=== PATIENT | female | born 1960 | race Caucasian/White ===

== ENCOUNTER 2018-03-31 08:28 | Emergency (ER) | payer OTHER ==
[2018-03-31 08:44] VITALS: BP 111/54
--- NOTE | 2018-03-31 09:16 | UC ---
Respiratory Complaint HPI - HPI Summary HPI Summary: 4 DAYS OF COUGH, SINUS PRESSURE, NASAL CONGESTION, LEFT EAR PAIN, ST AND CHEST CONGESTION. HAS H/O ASTHMA. FEELS WHEEZY. ALBUTEROL NOT HELPING MUCH. - History of Current Complaint Chief Complaint: UCRespiratory Stated Complaint: SINUS ISSUE Time Seen by Provider: 03/31/18 08:51 Hx Obtained From: Patient Onset/Duration: Gradual Onset, Lasting Days, Still Present Timing: Constant Severity Initially: Mild Severity Currently: Mild Pain Intensity: 2 Pain Scale Used: 0-10 Numeric Character: Cough: Nonproductive Aggravating Factors: Nothing Alleviating Factors: Nothing Associated Signs And Symptoms: Positive: Wheezing, URI, Nasal Congestion, Sinus Discomfort. Negative: Fever, Pleuritic Chest Pain - Allergies/Home Medications Allergies/Adverse Reactions: Allergies Allergy/AdvReac Type Severity Reaction Status Date / Time diazepam [From Valium] Allergy Vomiting Verified 03/31/18 08:47 Penicillins Allergy Rash Verified 03/31/18 08:44 Home Medications: Home Medications Albuterol HFA INHALER* [Ventolin HFA Inhaler*] 1 puff INH Q4H PRN 03/31/18 [ History Confirmed 03/31/18] Alpha Lipoic Acid 600 mg PO 03/31/18 [History] Ascorbic Acid TAB* [Vitamin C TAB*] 1,000 mg PO DAILY 03/31/18 [History Confirmed 03/31/18] Calcium Citrate TAB* [Citracal TAB*] 200 mg PO BID 03/31/18 [History Confirmed 03/31/18] Loratadine/Pseudoephedrine [Claritin-D 24 Hour Tablet] 1 tab PO 03/31/18 [ History] Multivitamin with Iron [Daily Multivitamin with Iron] 1 each PO 03/31/18 [ History] PMH/Surg Hx/FS Hx/Imm Hx Respiratory History: Asthma - Surgical History Surgical History: None - Family History Known Family History: Negative: Hypertension - Social History Alcohol Use: None Substance Use Type: None Smoking Status (MU): Never Smoked Tobacco Review of Systems Constitutional: Negative ENT: Sore Throat, Ear Ache, Nasal Discharge Respiratory: Cough Cardiovascular: Negative Gastrointestinal: Negative All Other Systems Reviewed And Are Negative: Yes Physical Exam Triage Information Reviewed: Yes Appearance: Well-Appearing, No Pain Distress, Well-Nourished Vital Signs: Initial Vital Signs Temp 98.2 F 03/31/18 08:40 Pulse 74 03/31/18 08:40 Resp 18 03/31/18 08:40 BP 111/54 03/31/18 08:40 Pulse Ox 100 03/31/18 08:40 Vital Signs Reviewed: Yes Eyes: Positive: Conjunctiva Clear ENT: Positive: Hearing grossly normal, Pharynx normal, TMs normal, Other - LEFT EAC WITH CERUMEN PARTIALLY OBSTRUCTING TM Neck: Positive: Supple, Nontender, No Lymphadenopathy Respiratory: Positive: No respiratory distress, No accessory muscle use, Wheezing - MILD END EXP WHEEZING DIFFUSELY. Negative: Decreased breath sounds Cardiovascular Exam: Normal Abdomen Description: Positive: Soft Musculoskeletal: Positive: No Edema Neurological: Positive: Alert Psychological: Positive: Age Appropriate Behavior Skin: Negative: rashes UC Diagnostic Evaluation - Laboratory O2 Sat by Pulse Oximetry: 100 Respiratory Course/Dx - Course Course Of Treatment: LEFT EAC SUCCESSFULLY IRRIGATED BY RN. TM NORMAL - Differential Dx/Diagnosis Provider Diagnoses: 1. ACUTE BRONCHITIS. 2. LEFT EAR CERUMEN IMPACTION Discharge - Sign-Out/Discharge Documenting (check all that apply): Patient Departure All imaging exams completed and their final reports reviewed: No Studies - Discharge Plan Condition: Stable Disposition: HOME Prescriptions: Azithromycin 500 mg PO DAILY #5 tab predniSONE TAB* [Deltasone 20 MG TAB*] 40 mg PO DAILY #10 tab Patient Education Materials: Cerumen Impaction (ED), Acute Bronchitis (ED) Referrals: No Primary Care Phys,NOPCP [Primary Care Provider] - Additional Instructions: YOUR SYMPTOMS MAY BE VIRALLY MEDIATED BUT GIVEN YOUR WHEEZE AND UNDERLYING ASTHMA WE WILL COVER YOU WITH ANTIBIOTICS. IF YOU START THE MEDICINE BE SURE TO TAKE IT FOR THE FULL COURSE. REST, HYDRATE, OTC MEDS NEEDED. WILL ALSO TREAT WITH PREDNISONE TO HELP WITH AIRWAY INFLAMMATION. CONTINUE YOUR INHALER NEEDED. SEEK FOLLOW-UP IF YOU ARE NOT IMPROVING OVER THE NEXT 1-2 WEEKS. CALL THE NUMBER BELOW FOR ASSISTANCE IN ESTABLISHING WITH A PCP An additional resource available to assist in finding the appropriate physician for your health care needs is the [facility] ([facility]). You may contact them by calling [phone]. - Billing Disposition and Condition Condition: STABLE Disposition: Home
== END 2018-03-31 09:31 | disposition home or self-care (01) ==
LOC: UCEAST 08:28
DX: J20.9 Acute bronchitis, unspecified (principal); H61.22 Impacted cerumen, left ear; Z88.3 Allergy status to other anti-infective agents; Z88.0 Allergy status to penicillin
CPT/HCPCS: 99213; G0463

== ENCOUNTER 2018-09-13 09:09 | Emergency (ER) | payer OTHER ==
[2018-09-13 09:17] VITALS: BP 108/47
--- NOTE | 2018-09-13 10:21 | UC ---
Throat Pain/Nasal Roberto HPI - HPI Summary HPI Summary: 58-year-old woman comes in with a chief complaint of runny nose sore throat cough chest congestion for 4 days. He does have some body aches she took some ibuprofen which helped the body aches. No shortness of breath. She does have some left ear pain. Not a smoker. - History of Current Complaint Chief Complaint: UCGeneralIllness Stated Complaint: SORE THROAT Time Seen by Provider: 09/13/18 10:14 Pain Intensity: 1 - Allergies/Home Medications Allergies/Adverse Reactions: Allergies Allergy/AdvReac Type Severity Reaction Status Date / Time diazepam [From Valium] Allergy Vomiting Verified 09/13/18 09:18 Penicillins Allergy Rash Verified 09/13/18 09:18 PMH/Surg Hx/FS Hx/Imm Hx Previously Healthy: Yes - Surgical History Surgical History: None - Family History Known Family History: Negative: Hypertension - Social History Alcohol Use: None Substance Use Type: None Smoking Status (MU): Never Smoked Tobacco Review of Systems All Other Systems Reviewed And Are Negative: Yes Constitutional: Positive: Negative Skin: Positive: Negative Eyes: Positive: Negative ENT: Positive: Sore Throat, Ear Ache, Nasal Discharge, Sinus Congestion Respiratory: Positive: Cough, Other - SEE HPI Cardiovascular: Positive: Negative Gastrointestinal: Positive: Negative Motor: Positive: Negative Neurovascular: Positive: Negative Musculoskeletal: Positive: Negative Neurological: Positive: Negative Psychological: Positive: Negative Is Patient Immunocompromised?: No Physical Exam Triage Information Reviewed: Yes Appearance: No Pain Distress, Well-Nourished, Ill-Appearing - MILD Vital Signs: Initial Vital Signs Temp 98.4 F 09/13/18 09:14 Pulse 93 09/13/18 09:14 Resp 18 09/13/18 09:14 BP 108/47 09/13/18 09:14 Pulse Ox 100 09/13/18 09:14 Vital Signs Reviewed: Yes Eye Exam: Normal Eyes: Positive: Conjunctiva Clear ENT: Positive: Pharyngeal erythema, Nasal congestion, Nasal drainage, TMs normal Neck exam: Normal Neck: Positive: Supple Respiratory: Positive: Lungs clear, Normal breath sounds, No respiratory distress Cardiovascular: Positive: RRR Musculoskeletal Exam: Normal Musculoskeletal: Positive: Strength Intact, ROM Intact Neurological Exam: Normal Neurological: Positive: Alert, Muscle Tone Normal Psychological Exam: Normal Psychological: Positive: Age Appropriate Behavior Skin Exam: Normal Throat Pain/Nasal Course/Dx - Course Course Of Treatment: DISCUSSED VIRAL VERSES BACTERIAL INFECTION AND THE ROLE OF ANTIBIOTICS. THE PATIENT WISHES TO BE ON ANTIBIOTIC AT THIS TIME. - Differential Dx/Diagnosis Provider Diagnosis: Upper respiratory infection Discharge - Sign-Out/Discharge Documenting (check all that apply): Patient Departure All imaging exams completed and their final reports reviewed: No Studies - Discharge Plan Condition: Stable Disposition: HOME Prescriptions: Azithromyxin NO (NF) [Z-No (Zithromax) 250 mg tabs #6] 2 tab PO .TODAY, THEN 1 DAILY #6 tab Patient Education Materials: Upper Respiratory Infection (ED) Referrals: [facility] [place] [facility]FERR[facility] [Outside] Additional Instructions: FOLLOW UP WITH YOUR DOCTOR IF NOT COMPLETELY IMPROVED. GET RECHECKED SOONER WITH ANY WORSENING OF YOUR CONDITION OR QUESTIONS OR CONCERNS. - Billing Disposition and Condition Condition: STABLE Disposition: Home
== END 2018-09-13 10:26 | disposition home or self-care (01) ==
LOC: UCEAST 09:09
DX: J06.9 Acute upper respiratory infection, unspecified (principal)
CPT/HCPCS: 99212; G0463

== ENCOUNTER 2018-10-23 09:44 | Emergency (ER) | payer OTHER ==
[2018-10-23 10:04] VITALS: BP 108/53
--- NOTE | 2018-10-23 10:47 | UC ---
Abdominal Pain Female HPI - HPI Summary HPI Summary: Pt c/o sudden onset of LLQ pain that began at 0120 this morning. Pt describes the pain as intermittent sharp, dull, and occasionally burning pain. Pt states that the pain has "spread to RLQ as well. pt is sitting comfortably in chair doing a cross word puzzle. Pt reports that she had a colonoscopy with "extra air " last week by [facility]. a d all reports were normal. Pt reports that she has had BM yesterday an dis passing flatus today. - History of Current Complaint Chief Complaint: UCAbdominalPain Stated Complaint: ABD PAIN Time Seen by Provider: 10/23/18 10:37 Hx Obtained From: Patient ?: No Onset/Duration: Sudden Onset, Lasting Hours, Still Present Timing: Intermittent Episodes Lasting: Severity Initially: Mild Severity Currently: Mild Pain Intensity: 5 Location: Discrete At: RLQ, Discrete At: LLQ Radiates: No Character: Burning, Cramping, Dull, Sharp Aggravating Factor(s): Nothing Alleviating Factor(s): Nothing Associated Signs and Symptoms: Positive: Negative, Other: - had colonoscopy last week. - Risk Factors Ectopic Risk Factor: Negative Ovarian Torsion Risk Factor: Negative Allergies/Adverse Reactions: Allergies Allergy/AdvReac Type Severity Reaction Status Date / Time amoxicillin [From Augmentin] Allergy Rash Verified 10/23/18 10:05 clavulanic acid Allergy Rash Verified 10/23/18 10:05 [From Augmentin] coconut Allergy Anaphylatic Verified 10/23/18 10:05 Shock codeine Allergy Vomiting Verified 10/23/18 10:05 diazepam [From Valium] Allergy Vomiting Verified 10/23/18 10:05 doxycycline Allergy Difficulty Verified 10/23/18 10:05 Swallowing, lung pain, saw white spots mushroom Allergy Rash, Verified 10/23/18 10:05 wheezing Penicillins Allergy Rash Verified 10/23/18 10:05 soy Allergy Itching Verified 10/23/18 10:05 strawberry Allergy Rash, Verified 10/23/18 10:05 wheezing Tree Nuts Allergy Anaphylatic Verified 10/23/18 10:05 Shock Yeast Allergy Congestion Verified 10/23/18 10:05 avocadoes Allergy Unknown Uncoded 10/23/18 10:05 Reaction Details cats Allergy Unknown Uncoded 10/23/18 10:05 Reaction Details MSG Allergy GI Upset Uncoded 10/23/18 10:05 PMH/Surg Hx/FS Hx/Imm Hx Previously Healthy: Yes - Surgical History Surgical History: None - Family History Known Family History: Negative: Hypertension - Social History Occupation: Employed Full-time Lives: With Family Alcohol Use: None Substance Use Type: None Smoking Status (MU): Never Smoked Tobacco Have You Smoked in the Last Year: No Review of Systems All Other Systems Reviewed And Are Negative: Yes Constitutional: Positive: Negative Skin: Positive: Negative Eyes: Positive: Negative ENT: Positive: Negative Respiratory: Positive: Negative Cardiovascular: Positive: Negative Gastrointestinal: Positive: Abdominal Pain Genitourinary: Positive: Negative Motor: Positive: Negative Neurovascular: Positive: Negative Musculoskeletal: Positive: Negative Neurological: Positive: Negative Psychological: Positive: Negative Is Patient Immunocompromised?: No Physical Exam Triage Information Reviewed: Yes Appearance: Well-Appearing Vital Signs: Initial Vital Signs Temp 98.9 F 10/23/18 10:01 Pulse 88 10/23/18 10:01 Resp 18 10/23/18 10:01 BP 108/53 10/23/18 10:01 Pulse Ox 100 10/23/18 10:01 Vital Signs Reviewed: Yes Eye Exam: Normal ENT Exam: Normal Dental Exam: Normal Neck exam: Normal Respiratory Exam: Normal Cardiovascular Exam: Normal Abdomen Description: Positive: Other: - generalized tenderness Bowel Sounds: Positive: Present Musculoskeletal Exam: Normal Neurological Exam: Normal Psychological Exam: Normal Skin Exam: Normal Abd Pain Female Course/Dx - Course Course Of Treatment: Pt was instructed to call GI provider as soon as possible. Pt verbalized understanding and agreed to plan of car.e Pt denies black tarry stools or BRBPR - Differential Dx/Diagnosis Differential Diagnosis: Bowel Obstruction, Other - complication of colonoscopy Provider Diagnosis: Abdominal pain, acute, generalized Discharge - Sign-Out/Discharge Documenting (check all that apply): Patient Departure All imaging exams completed and their final reports reviewed: No Studies - Discharge Plan Condition: Stable Disposition: HOME Patient Education Materials: Abdominal Pain (ED) Referrals: Benny Casper MD [Medical Doctor] - As Soon As Possible Dru Jasmine MD [Primary Care Provider] - Additional Instructions: Please follow up with your GI provider immediately. If symptoms worsen please seek care immediately at the closest emergency room. - Billing Disposition and Condition Condition: STABLE Disposition: Home
== END 2018-10-23 10:55 | disposition home or self-care (01) ==
LOC: UCEAST 09:44
DX: R10.84 Generalized abdominal pain (principal); Z88.5 Allergy status to narcotic agent; Z88.0 Allergy status to penicillin; Z91.09 Other allergy status, other than to drugs and biological substances; Z91.018 Allergy to other foods; Z88.1 Allergy status to other antibiotic agents
CPT/HCPCS: 99212; G0463

== ENCOUNTER 2018-10-30 07:47 | Emergency (ER) | payer OTHER ==
[2018-10-30 08:00] VITALS: BP 116/68
--- NOTE | 2018-10-30 08:15 | UC ---
Laceration HPI - HPI Summary HPI Summary: laceration left side of vaginal area x 1 day was noted last night , minimal bleeding, no known injury - History Of Current Complaint Chief Complaint: UCGU Stated Complaint: PERSONAL Time Seen by Provider: 10/30/18 07:57 Hx Obtained From: Patient Laceration Location: Generalized - left side of vaginal area Mechanism Of Injury: No Known Trauma Onset/Duration: Gradual Onset, Lasting Days - 1, Still Present Severity: Moderate Pain Intensity: 3 Aggravating Factors: Other: - touch - Allergies/Home Medications Allergies/Adverse Reactions: Allergies Allergy/AdvReac Type Severity Reaction Status Date / Time amoxicillin [From Augmentin] Allergy Rash Verified 10/30/18 08:00 clavulanic acid Allergy Rash Verified 10/30/18 08:00 [From Augmentin] coconut Allergy Anaphylatic Verified 10/30/18 08:00 Shock codeine Allergy Vomiting Verified 10/30/18 08:00 diazepam [From Valium] Allergy Vomiting Verified 10/30/18 08:00 doxycycline Allergy Difficulty Verified 10/30/18 08:00 Swallowing, lung pain, saw white spots horse dander Allergy Rash Verified 10/30/18 08:00 mushroom Allergy Rash, Verified 10/30/18 08:00 wheezing Penicillins Allergy Rash Verified 10/30/18 08:00 soy Allergy Itching Verified 10/30/18 08:00 strawberry Allergy Rash, Verified 10/30/18 08:00 wheezing Tree Nuts Allergy Anaphylatic Verified 10/30/18 08:00 Shock Yeast Allergy Congestion Verified 10/30/18 08:00 avocadoes Allergy Unknown Uncoded 10/30/18 08:00 Reaction Details cats Allergy Unknown Uncoded 10/30/18 08:00 Reaction Details MSG Allergy GI Upset Uncoded 10/30/18 08:00 Home Medications: Home Medications Ibuprofen 600 mg PO ONCE PRN 10/30/18 [History Confirmed 10/30/18] PMH/Surg Hx/FS Hx/Imm Hx Previously Healthy: Yes - Surgical History Surgical History: Yes Surgery Procedure, Year, and Place: colonoscopy - Family History Known Family History: Negative: Hypertension - Social History Alcohol Use: None Substance Use Type: None Smoking Status (MU): Never Smoked Tobacco Have You Smoked in the Last Year: No Review of Systems All Other Systems Reviewed And Are Negative: Yes Constitutional: Positive: Negative Eyes: Positive: Negative ENT: Positive: Negative Respiratory: Positive: Negative Is Patient Immunocompromised?: No Physical Exam Triage Information Reviewed: Yes Appearance: Well-Appearing, No Pain Distress, Well-Nourished Vital Signs: Initial Vital Signs Temp 97.6 F 10/30/18 07:54 Pulse 77 10/30/18 07:54 Resp 18 10/30/18 07:54 BP 116/68 10/30/18 07:54 Pulse Ox 100 10/30/18 07:54 Vital Signs Reviewed: Yes Eye Exam: Normal Eyes: Positive: Conjunctiva Clear ENT: Positive: Normal ENT inspection, Hearing grossly normal, Pharynx normal Neck: Positive: Supple, Nontender, No Lymphadenopathy Respiratory: Positive: Chest non-tender, Lungs clear, Normal breath sounds Cardiovascular: Positive: RRR, No Murmur, Pulses Normal Pelvic Exam: Positive: No Masses, Other. Negative: Active Bleeding, Discharge - minor superfacial lacearation left side of vaginano no bleeding Laceration Course/Dx - Diagnosis Provider Diagnosis: Laceration of vagina Discharge - Sign-Out/Discharge Documenting (check all that apply): Patient Departure All imaging exams completed and their final reports reviewed: No Studies - Discharge Plan Condition: Stable Disposition: HOME Patient Education Materials: Laceration Without Closure (ED) Referrals: Dru Jasmine MD [Primary Care Provider] - If Needed Additional Instructions: minor laceration left side of vaginal area no need for repair, minimal bleeding keep the area clean , may use otc antibiotic ointment daily follow up as needed - Billing Disposition and Condition Condition: STABLE Disposition: Home
== END 2018-10-30 08:15 | disposition home or self-care (01) ==
LOC: UCEAST 07:47
DX: S31.41XA Laceration without foreign body of vagina and vulva, initial encounter (principal); Z91.09 Other allergy status, other than to drugs and biological substances; Z88.1 Allergy status to other antibiotic agents; Z88.0 Allergy status to penicillin; Z91.018 Allergy to other foods; Z88.5 Allergy status to narcotic agent; X58.XXXA Exposure to other specified factors, initial encounter; Y92.9 Unspecified place or not applicable
CPT/HCPCS: 99211; G0463

== ENCOUNTER 2018-12-27 03:15 | Emergency (ER) | payer OTHER ==
[2018-12-27] MEDS ORDERED: Lidocaine 2% VISCOUS* 15 ML UDC PO ONE (03:52)
[2018-12-27] MEDS ORDERED: Al Hydrox/Mg Hydrox/Simet LIQ* 30 ML UDC PO ONE (03:52)
--- NOTE | 2018-12-27 03:56 | ED ---
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 She woke up this morning with diaphoresis described as night sweats and clammy skin. She denies any chest pain and SOB. 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 - History Of Current Complaint Chief Complaint: EDGeneral Hx Obtained From: Patient Onset/Duration: Sudden Onset Associated Signs And Symptoms: Positive: Diaphoresis. Negative: Chest Pain - Allergies/Home Medications Allergies/Adverse Reactions: Allergies Allergy/AdvReac Type Severity Reaction Status Date / Time amoxicillin [From Augmentin] Allergy Rash Verified 12/27/18 03:21 clavulanic acid Allergy Rash Verified 12/27/18 03:21 [From Augmentin] coconut Allergy Anaphylatic Verified 12/27/18 03:21 Shock codeine Allergy Vomiting Verified 12/27/18 03:21 diazepam [From Valium] Allergy Vomiting Verified 12/27/18 03:21 doxycycline Allergy Difficulty Verified 12/27/18 03:21 Swallowing, lung pain, saw white spots horse dander Allergy Rash Verified 12/27/18 03:21 mushroom Allergy Rash, Verified 12/27/18 03:21 wheezing Penicillins Allergy Rash Verified 12/27/18 03:21 soy Allergy Itching Verified 12/27/18 03:21 strawberry Allergy Rash, Verified 12/27/18 03:21 wheezing Tree Nuts Allergy Anaphylatic Verified 12/27/18 03:21 Shock Yeast Allergy Congestion Verified 12/27/18 03:21 avocadoes Allergy Unknown Uncoded 12/27/18 03:21 Reaction Details cats Allergy Unknown Uncoded 12/27/18 03:21 Reaction Details MSG Allergy GI Upset Uncoded 12/27/18 03:21 PMH/Surg Hx/FS Hx/Imm Hx Respiratory History: Reports: Hx Asthma Musculoskeletal History: Denies: Hx Osteoporosis EENT History: Denies: Hx Deafness - Surgical History Surgery Procedure, Year, and Place: colonoscopy Infectious Disease History: No Infectious Disease History: Denies: Traveled Outside the [place] in Last 30 Days - Family History Known Family History: Negative: Hypertension - Social History Alcohol Use: None Substance Use Type: Reports: None Smoking Status (MU): Never Smoked Tobacco Have You Smoked in the Last Year: No Review of Systems Positive: Skin Diaphoresis Positive: Other - Acid reflux All Other Systems Reviewed And Are Negative: Yes Physical Exam - Summary Physical Exam Summary: VITAL SIGNS: Reviewed. GENERAL: Patient is a well-developed and nourished FEMALE who is lying comfortable in the stretcher. Patient is not in any acute respiratory distress. HEAD AND FACE: No signs of trauma. No ecchymosis, hematomas or skull depressions. No sinus tenderness. EYES: PERRLA, EOMI x 2, No injected conjunctiva, no nystagmus. EARS: Hearing grossly intact. Ear canals and tympanic membranes are within normal limits. MOUTH: Oropharynx within normal limits. NECK: Supple, trachea is midline, no adenopathy, no JVD, no carotid bruit, no c- spine tenderness, neck with full ROM. CHEST: Symmetric, no tenderness at palpation LUNGS: Clear to auscultation bilaterally. No wheezing or crackles. CVS: Regular rate and rhythm, S1 and S2 present, no murmurs or gallops appreciated. ABDOMEN: Soft, epigastric tenderness. No signs of distention. No rebound no guarding, and no masses palpated. Bowel sounds are normal. EXTREMITIES: FROM in all major joints, no edema, no cyanosis or clubbing. NEURO: Alert and oriented x 3. No acute neurological deficits. Speech is normal and follows commands. SKIN: Dry and warm Triage Information Reviewed: Yes Vital Signs On Initial Exam: Initial Vitals Temp Pulse Resp BP Pulse Ox 98.6 F 77 20 138/72 100 12/27/18 03:17 12/27/18 03:17 12/27/18 03:17 12/27/18 03:17 12/27/18 03:17 Vital Signs Reviewed: Yes Diagnostics - Vital Signs Vital Signs Temp Pulse Resp BP Pulse Ox 12/27/18 03:17 98.6 F 77 20 138/72 100 - Laboratory Result Diagrams: 12/27/18 04:09 12/27/18 04:09 Lab Statement: Any lab studies that have been ordered have been reviewed, and results considered in the medical decision making process. - EKG 0408 Cardiac Rate: NL EKG Rhythm: Sinus Rhythm - [address] Segment: Normal Ectopy: None Summary of EKG Findings: Normal axis, normal interval, no ischemic changes. 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 Labs are unremarkable. EKG is unremarkable for cardiovascular problems. Labs are unremarkable. Patient HEART score is 1. Patient had 2 negative troponin tests. Patient will be discharged and instructed to follow up with a Solid Waste Division Supervisor for a stress test. This plan was discussed with the patient and she is agreeable with this plan. - Diagnoses Provider Diagnoses: Atypical chest pain, GERD (gastroesophageal reflux disease) Discharge - Sign-Out/Discharge Documenting (check all that apply): Patient Departure - Discharge Patient Received Moderate/Deep Sedation with Procedure: No - Discharge Plan Condition: Stable Disposition: HOME Patient Education Materials: Chest Pain (ED), Gastroesophageal Reflux Disease ( ED) Referrals: [facility] [Provider Group] - 2 Days Additional Instructions: Follow up with Cardiology in 2 days for stress test. Return to ED with any new or worsening symptoms. - Attestation Statements Document Initiated by Scribe: Yes Documenting Scribe: Reggie Ham Provider For Whom Scribe is Documenting (Include Credential): Negra Cloud MD Scribe Attestation: Reggie Dela Cruz scribed for Negra Cloud MD on 12/27/18 at 0636. Status of Scribe Document: Ready
[2018-12-27 04:18] LABS: ABS Eosinophils 0.2 10^3/ul (0-0.6); ABS Lymphocytes 1.3 10^3/ul (1.0-4.8); ABS Monocytes 0.5 10^3/ul (0-0.8); ABS Neutrophils 2.6 10^3/ul (1.5-7.7); Eosinophil % 4.3 %; Hematocrit 40 % (35-47); Hemoglobin 13.2 g/dL (12.0-16.0); Lymphocyte % 27.6 %; Mean Corpuscular HGB Conc 33 g/dL (31-36); Mean Corpuscular Hemoglobin 28 pg (27-31); Mean Corpuscular Volume 85 fL (80-97); Mean Platelet Volume 9.1 fL (7.4-10.4); Nucleated Red Blood Cells % 0.1; Platelet Count 237 10^3/uL (150-450); Red Blood Count 4.67 10^6 /uL (3.70-4.87); Red Cell Distribution Width 14 % (10.5-15); White Blood Count 4.6 10^3/uL (3.5-10.8)
[2018-12-27 04:25] LABS: Activated Partial Thrombo Time 34.1 seconds (26.0-36.3); INR 1.07 (0.82-1.09)
[2018-12-27 04:34] LABS: Albumin 3.9 g/dL (3.2-5.2); Albumin/Globulin Ratio 1.4 (1-3); BUN/Creatinine Ratio 25.5 (8-20); Calcium 9.5 mg/dL (8.6-10.3); EGFR African American 148.8 (>60); Globulin 2.7 g/dL (2-4); Magnesium 2.2 mg/dL (1.9-2.7); Potassium 4.2 mmol/L (3.5-5.0); Total Bilirubin 0.3 mg/dL (0.2-1.0); Total Protein 6.6 g/dL (6.4-8.9)
[2018-12-27 04:36] LABS: Troponin I 0.01 ng/mL (<0.04)
[2018-12-27 07:08] VITALS: BP 124/65
== END 2018-12-27 07:08 | disposition home or self-care (01) ==
LOC: ED 03:15
DX: R07.89 Other chest pain (principal); K21.9 Gastro-esophageal reflux disease without esophagitis; Z88.5 Allergy status to narcotic agent; Z88.0 Allergy status to penicillin
CPT/HCPCS: 36415; 80053; 82150; 83605; 83690; 83735; 84484; 85025; 85610; 85730; 93005; 99283; A9270-GY

== ENCOUNTER 2019-10-29 16:04 | Emergency (ER) | payer OTHER ==
--- NOTE | 2019-10-29 17:10 | UC ---
FLU HPI - HPI Summary HPI Summary: 59-year-old woman comes in with chief complaint of 3 days of influenza-like symptoms. She's had a runny nose with some cough and chest congestion has also had some body aches. Has felt some wheezing which albuterol did help. No recent travel or known contact with anybody with Covid 19. Describes a chest tightness. Denies any concern of her heart during the interview. - History of Current Complaint Chief Complaint: UCRespiratory Stated Complaint: COUGH, HEAVY CHEST Time Seen by Provider: 10/29/19 16:45 Pain Intensity: 0 - Allergy/Home Medications Allergies/Adverse Reactions: Allergies Allergy/AdvReac Type Severity Reaction Status Date / Time amoxicillin [From Augmentin] Allergy Rash Verified 12/27/18 03:21 clavulanic acid Allergy Rash Verified 12/27/18 03:21 [From Augmentin] coconut Allergy Anaphylatic Verified 12/27/18 03:21 Shock codeine Allergy Vomiting Verified 12/27/18 03:21 diazepam [From Valium] Allergy Vomiting Verified 12/27/18 03:21 doxycycline Allergy Difficulty Verified 12/27/18 03:21 Swallowing, lung pain, saw white spots horse dander Allergy Rash Verified 12/27/18 03:21 mushroom Allergy Rash, Verified 12/27/18 03:21 wheezing Penicillins Allergy Rash Verified 12/27/18 03:21 soy Allergy Itching Verified 12/27/18 03:21 strawberry Allergy Rash, Verified 12/27/18 03:21 wheezing Tree Nuts Allergy Anaphylatic Verified 12/27/18 03:21 Shock Yeast Allergy Congestion Verified 12/27/18 03:21 avocadoes Allergy Unknown Uncoded 12/27/18 03:21 Reaction Details cats Allergy Unknown Uncoded 12/27/18 03:21 Reaction Details MSG Allergy GI Upset Uncoded 12/27/18 03:21 Home Medications: Home Medications Albuterol HFA INHALER* [Ventolin HFA Inhaler*] 1 puff INH Q4H PRN 03/31/18 [ History Confirmed 12/27/18] Alpha Lipoic Acid 400 mg PO DAILY 03/31/18 [History Confirmed 12/27/18] Ascorbic Acid TAB* [Vitamin C TAB*] 1,000 mg PO DAILY 03/31/18 [History Confirmed 12/27/18] Calcium Citrate TAB* [Citracal TAB*] 900 mg PO DAILY 03/31/18 [History Confirmed 12/27/18] Loratadine/Pseudoephedrine [Claritin-D 24 Hour Tablet] 1 tab PO DAILY 03/31/18 [ History Confirmed 12/27/18] Magnesium Oxide TAB* [MagOx 400 TAB*] 400 mg PO DAILY 10/02/18 [History Confirmed 12/27/18] Silica Gel 7 drop PO DAILY 10/02/18 [History Confirmed 12/27/18] Cholecalciferol TAB* [Vitamin D TAB*] 2,000 units PO DAILY 10/12/18 [History Confirmed 12/27/18] Multivitamin [Multiple Vitamins] 1 tab PO DAILY 10/14/18 [History Confirmed ] Ibuprofen 600 mg PO ONCE PRN 10/30/18 [History Confirmed 12/27/18] Pantoprazole TAB * [Protonix TAB*] 40 mg PO DAILY #30 tab 12/27/18 [Rx] Alendronate Sodium 70 mg PO WEEKLY 10/29/19 [History Confirmed 10/29/19] Azithromyxin NO (NF) [Z-No (Zithromax) 250 mg tabs #6] 2 tab PO .TODAY, THEN 1 DAILY #6 tab 10/29/19 [Rx] Mupirocin 1 applic TOPICAL BID #22 gm 10/29/19 [Rx] Ofloxacin 0.3% (Ear Drop)* [Floxin 0.3% OTIC.BUFFY (Ear Drop)] 5 drop LEFT EAR BID #1 btl 10/29/19 [Rx] PMH/Surg Hx/FS Hx/Imm Hx Previously Healthy: Yes Respiratory History: Asthma GI/ History: Gastroesophageal Reflux - Surgical History Surgical History: None Surgery Procedure, Year, and Place: colonoscopy - Family History Known Family History: Negative: Hypertension - Social History Alcohol Use: None Substance Use Type: None Smoking Status (MU): Never Smoked Tobacco Have You Smoked in the Last Year: No Review of Systems All Other Systems Reviewed And Are Negative: Yes Constitutional: Positive: Other - SEE HPI Skin: Positive: Negative Eyes: Positive: Negative ENT: Positive: Nasal Discharge, Sinus Congestion Respiratory: Positive: Cough, Other - SEE HPI Cardiovascular: Positive: Other - SEE HPI Motor: Positive: Negative Neurovascular: Positive: Negative Musculoskeletal: Positive: Myalgia Neurological/Mental Status: Positive: Negative Psychological: Positive: Negative Is Patient Immunocompromised?: No Physical Exam - Summary Physical Exam Summary: To decrease transmission of Covid 19 risk, physical exam was performed by telemedicine which limits the physical examination. Triage Information Reviewed: Yes Appearance: Well-Appearing, No Pain Distress, Well-Nourished Vital Signs Reviewed: Yes Eye Exam: Normal Eyes: Positive: Conjunctiva Clear ENT: Positive: Nasal congestion Neck: Positive: Supple Respiratory: Positive: No respiratory distress Musculoskeletal: Positive: Strength Intact, ROM Intact Neurological: Positive: Alert Psychological: Positive: Age Appropriate Behavior Flu Course/Dx - Course Course Of Treatment: Strep and flu were negative. Patient has been tested for covid 19. She will be in isolation and follow-up with [facility]. Patient reports she has albuterol at home that she can use for her bronchospasm. Discussed viral versus bacterial infections and the role of antibiotics the patient prefers to be on antibiotics at this time. Patient also wished for a prescription for antibiotic eardrops and mupirocin which I filled. Patient's emergency department if worse. - Differential Dx/Diagnosis Provider Diagnosis: Upper respiratory infection Discharge ED - Sign-Out/Discharge Documenting (check all that apply): Patient Departure All imaging exams completed and their final reports reviewed: No Studies - Discharge Plan Condition: Stable Disposition: HOME Prescriptions: Azithromyxin NO (NF) [Z-No (Zithromax) 250 mg tabs #6] 2 tab PO .TODAY, THEN 1 DAILY #6 tab Mupirocin 1 applic TOPICAL BID #22 gm Ofloxacin 0.3% (Ear Drop)* [Floxin 0.3% OTIC.BUFFY (Ear Drop)] 5 drop LEFT EAR BID #1 btl Patient Education Materials: Upper Respiratory Infection (ED) Referrals: Natalai Betts MD [Primary Care Provider] - Additional Instructions: PLACE YOURSELF IN HOME ISOLATION. THE [facility] WILL CONTACT YOU. CONTACT THEM TOMORROW IF YOU HAVE NOT HEARD FROM THEM. FOLLOW UP WITH YOUR DOCTOR IF NOT COMPLETELY IMPROVED. GO TO THE EMERGENCY DEPARTMENT IF NOT IMPROVED OR WORSE OR ANY QUESTIONS OR CONCERNS. - Billing Disposition and Condition Condition: STABLE Disposition: Home
[2019-10-29 17:26] LABS: Influenza A Molecular Negative (Negative); Influenza B Molecular Negative (Negative)
== END 2019-10-29 18:47 | disposition home or self-care (01) ==
LOC: UCEAST 16:04
DX: J06.9 Acute upper respiratory infection, unspecified (principal); Z20.828 Contact with and (suspected) exposure to other viral communicable diseases; J45.909 Unspecified asthma, uncomplicated; K21.9 Gastro-esophageal reflux disease without esophagitis; Z79.899 Other long term (current) drug therapy; Z88.1 Allergy status to other antibiotic agents; Z88.5 Allergy status to narcotic agent; Z91.018 Allergy to other foods; Z88.0 Allergy status to penicillin; Z91.09 Other allergy status, other than to drugs and biological substances
CPT/HCPCS: 87651; 99213; G0463; Q3014; U0002